=== PATIENT | female | born 1990 | race Caucasian/White ===

== ENCOUNTER 2017-08-20 16:11 | Emergency (ER) | payer MEDICAID, OTHER ==
[~2017-08-20] VITALS: Ht 157.5 cm; Wt 72.0 kg
[~2017-08-20 16:11] MED LIST: DOXY100T2 PO; HYDR-519 PO; METR250T PO; OMEP20CA10 PO
[2017-08-20] MEDS ORDERED: PREDNISONE 20MG TABLET PO ONE (17:15)
[2017-08-20] MEDS ORDERED: IPRATROPIUM/ALBUTEROL 0.5-3(2.5)MG/3ML NEB HHN ONE (17:15)
[2017-08-20] MEDS ORDERED: AZITHROMYCIN 500 MG TABLET PO ONE (17:15)
[2017-08-20 17:18] VITALS: BP 119/67
== END 2017-08-20 19:15 | disposition home or self-care (01) ==
LOC: ER 16:18
DX: O99.512 Diseases of the respiratory system complicating pregnancy, second trimester (principal); Z3A.21 21 weeks gestation of pregnancy; J40 Bronchitis, not specified as acute or chronic; Z90.49 Acquired absence of other specified parts of digestive tract; Z87.440 Personal history of urinary (tract) infections
CPT/HCPCS: 93005; 94640; 99283; J7512; J7620

== ENCOUNTER 2021-05-09 15:06 | Emergency (ER) | payer SELFPAY ==
[~2021-05-09] VITALS: Ht 157.5 cm; Wt 63.5 kg
[~2021-05-09 15:06] MED LIST changes: -OMEP20CA10 PO; +OMEP20CA14 PO
[2021-05-09 15:16] VITALS: BP 128/92
== END 2021-05-09 16:00 | disposition left against medical advice (07) ==
LOC: ER 15:29
DX: Z04.1 Encounter for examination and observation following transport accident (principal); Z53.29 Procedure and treatment not carried out because of patient's decision for other reasons; Z90.49 Acquired absence of other specified parts of digestive tract
CPT/HCPCS: 99283